=== PATIENT | male | born 1985 | race Caucasian/White ===

== ENCOUNTER 2017-01-17 22:35 | Emergency (ER) | payer OTHER ==
[~2017-01-17 22:35] MED LIST: BACTRIM DS TABL1 TA1 PO; BACTRIM DS TABL1 TAB PO; BACTROBAN15 GM TOP; DELSYM30 MG/5 ML PO; IBUPROFEN PO; KEFLEX500 M2 PO; LORTAB 7.5-5001 TAB PO; PERCOCET5/325 PO; TYLOX 5/500 CAP1 CAP PO; ULTRAM PO; VICODIN 5/500 T1 TAB PO; VOLTAREN75 MG PO
== END 2017-01-17 22:37 | disposition left against medical advice (07) ==
LOC: SED 22:35
DX: Z53.21 Procedure and treatment not carried out due to patient leaving prior to being seen by health care provider (principal)